=== PATIENT | female | born 2000 | race American Indian/Alaskan Native ===

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

== ENCOUNTER 2019-11-11 12:49 | Inpatient (IN) | payer MEDICAID ==
[2019-11-11] MEDS ORDERED: Misoprostol 400 MCG (4 X 100 MCG TAB) RECTAL PRN (13:34)
[2019-11-11] MEDS ORDERED: Methylergonovine 0.2 MG/1 ML Amp IM PRN (13:34)
[2019-11-11] MEDS ORDERED: Penicillin G Potassium 5 MILLUNITS in Sodium Chloride 0.9% 100 ML IV ONE (13:34)
[2019-11-11] MEDS ORDERED: Acetaminophen 325 MG Tab PO PRN (13:34)
[2019-11-11] MEDS ORDERED: Lactated Ringers 1,000 ML IV ONE (13:34)
[2019-11-11] MEDS ORDERED: Tranexamic Acid 1,000 MG in Sodium Chloride 0.9% 100 ML IV PRN (13:34)
[2019-11-11] MEDS ORDERED: Carboprost Tromethamine 250 MCG/1 ML Amp IM PRN (13:34)
[2019-11-11] MEDS ORDERED: Lidocaine 1% 30 ML SDV INJECT PRN (13:34)
[2019-11-11] MEDS ORDERED: Sodium Chloride 0.9% 10 ML Syringe FLUSH PRN (13:34)
[2019-11-11] MEDS ORDERED: Ondansetron 4 MG/2 ML SDV IVPUSH PRN (13:34)
[2019-11-11] MEDS ORDERED: Lactated Ringers 1,000 ML IV SCH (13:45)
[2019-11-11] MEDS ORDERED: Oxytocin/Normal Saline 30 UNIT/500 ML BAG IV SCH (13:45)
[2019-11-11] MEDS: fentaNYL 100 MCG/2 ML SDV IVPUSH PRN ×2 (15:45→16:43)
[2019-11-11] MEDS ORDERED: Benzocaine/Menthol 20%-0.5% Spray 56 GM Canister TOP PRN (17:13)
[2019-11-11] MEDS ORDERED: Simethicone 80 MG Tab.Chew PO PRN (17:13)
[2019-11-11] MEDS ORDERED: Measles, Mumps & Rubella Vaccine 0.5 ML SDV SUBCUT ONE (17:13)
[2019-11-11] MEDS ORDERED: Penicillin G Potassium 3 MILLUNITS in Sodium Chloride 0.9% 100 ML IV SCH (18:00)
[2019-11-11] MEDS: Ibuprofen 800 MG Tab PO PRN (18:57)
[2019-11-11] MEDS: Docusate Sodium 100 MG Cap PO PRN (20:16)
--- NOTE | 2019-11-11 20:26 | HP ---
CHIEF COMPLAINT: Force and frequency of contractions. HISTORY OF PRESENT ILLNESS: The patient is a 19-year-old 1, para 0, currently at 39-3/7 weeks of her , presenting to Labor and Delivery complaining of contractions, started around 11 o'clock last night, and they have gotten consistently stronger and closer together. No leakage of fluid or vaginal bleeding. movement has been good. No chest pain, shortness of breath. No symptoms of preeclampsia. Denies other concerns, but is aware that she is group B strep positive. Hoping to use minimal pain medications throughout labor if possible. Otherwise, has no concerns. HISTORY: The patient started her care in [place], and those labs showed an uncertain LMP of 01/12/2019. However, she did have early ultrasound at 8 weeks 5 days, giving us our working due date of 11/15/2019. There was alcohol exposure prior to knowledge of and last marijuana use was reported by her in April of 2019. Medication exposures included Rocephin, Zithromax, Metronidazole, Keflex, Vistaril, and Keflex. Stopped her trazodone and Zoloft after finding out she was . Otherwise, urine drug screen positive in March for marijuana. Wet prep positive for rare clue cells. Chlamydia was positive. Gonorrhea was negative. HIV negative. Hepatitis C negative. She is blood type O positive. Antibody screen negative. Hepatitis B negative. RPR nonreactive. Rubella non-immune. In June, she was gonorrhea and chlamydia positive for both. In June, her 22-week anatomy ultrasound shows an anterior placenta, breech baby, normal anatomy. Hemoglobin was 12.4. She had a negative quad screen and a normal 1-hour glucose tolerance test of 103. In July, she had test of cure negative for gonorrhea and chlamydia. She received her flu vaccine on 04/10/2019 and her Tdap on 08/25/2019. Urinary tract infection in the 3rd trimester and prescribed Macrobid, but she did not complete take it. For her STD testing, she was chlamydia positive, gonorrhea negative. Vomited her first dose of Zithromax and then was re-dosed, but ultimately had the test positive, treated with Rocephin and Zithromax again, and then finally test of cure was negative. The breech presentation has resolved. She also has obesity, but otherwise no major risk factors. PAST MEDICAL HISTORY: Cholelithiasis, chronic constipation, depression, and stopped her sertraline and trazodone in the 1st trimester of , history of marijuana use, and class III obesity with a BMI of 40 to 50. PAST SURGICAL HISTORY: Cholecystectomy 09/2013 and tooth extraction. FAMILY HISTORY: Both parents, 5 sisters, and 2 brothers are all alive and well. Maternal grandmother has some sort of respiratory problems related to smoking. No known history of lung cancer. Maternal grandfather is alive with no known medical problems. Paternal grandmother is and had alcohol abuse, alcohol related liver cirrhosis, and diabetes. Paternal grandfather is alive. He has diabetes and has heart disease as do others on his side of the family. There is no family history of any bleeding problems, clotting disorders, cystic fibrosis, seizures, anesthesia problems, defects, or multiple births. SOCIAL HISTORY: The patient was working at [employer], but quit working 2-3 weeks ago. She is living with her mother and siblings. Father of the baby is Norberto Frederick and he is not working at this time. This will be his second child and his first son has fairly severe eczema and he does not live with them. They do continue to be romantically involved and he is expected to be acting in the father role for this new baby. MEDICATIONS: vitamin 1 daily, Vistaril 25 mg up to 3 times a day as needed for back pain. ALLERGIES: No known drug allergies. REVIEW OF SYSTEMS: Pertinent positives and negatives as listed above under the history of present illness. The patient has been afebrile. No respiratory symptoms. No concerning symptoms for COVID-19. No symptoms of preeclampsia. No nausea, vomiting. No diarrhea, constipation. No acute skin changes. OBJECTIVE: Vital Signs: Temp 97.6, Pulse 83, BP 107/66, Resp rate 16.. HEENT: Grossly unremarkable. Neck: Supple without adenopathy. Heart: Regular without obvious murmur. Lungs: Clear to auscultation bilaterally with good chest expansion. Abdomen: Soft without masses. Fundal height appropriate. Baby palpates vertex. heart tones tracing 150 beats per minute at baseline. Accelerations are hard to waste picker on initial tracing. [place] showing contractions every 2 to 3 minutes. Cervical exam performed by the nurse, 5 cm dilated, 100% effaced, bulging bag of water is intact. Extremities: No edema, erythema, or tenderness. Skin: Without significant lesions. Neuro: no focal deficits. ASSESSMENT: 1. 1, para 0, currently at 39-3/7 weeks of her . 2. Group B streptococcus positive. 3. Rubella nonimmune. 4. History of marijuana use. 5. History of gonorrhea and chlamydia earlier in this , treated, and test of cure negative. 6. History of urinary tract infection in the 3rd trimester. 7. History of bacterial vaginosis. 8. Class III obesity. 9. Depression. 10.Chronic constipation. PLAN: The patient has been admitted to Labor and Delivery. We will get her IV started and initiate the penicillin protocol for GBS prophylaxis. The patient can have fentanyl or intrathecal for pain management as desired. After she had her first dose of penicillin, it has been about 4 hours, if she is not continuing to make adequate progress or if she desires to speed up labor, anticipate performing artificial rupture of membranes with possible augmentation. Will be anticipating vaginal delivery. Naturally, we will change the course of labor and delivery should any problems or concerns arise. The patient's questions have been answered. [facility] /[id number] YOLANDE
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
[2019-11-12] MEDS: Ibuprofen 800 MG Tab PO PRN ×3 (04:52→22:05)
[2019-11-12] MEDS: Ferrous Sulfate 325 MG Tab PO SCH (08:16)
[2019-11-12] MEDS: Docusate Sodium 100 MG Cap PO PRN ×2 (08:16→22:05)
[2019-11-12] MEDS: Prenatal Multivitamin with Calcium/Folic Acid/Iron Tab PO SCH (08:16)
--- NOTE | 2019-11-12 12:03 | PN ---
DATE: 11/12/2019 SUBJECTIVE: Postvaginal delivery day #1. Patient reports doing fairly well. She has been ambulating, tolerating regular diet, voiding without difficulties, has not yet had a bowel movement. her child and a little concerned about her milk not having come in yet, also wanting to go back on her Zoloft for her chronic depression, wants to hold off on the trazodone at this time since that was primarily being given for the insomnia component. Otherwise, no shortness of breath or chest pain. Blood flow has been moderate. No increased edema in the extremities. No symptoms of preeclampsia. No other acute concerns for her today. OBJECTIVE: Vital Signs: Temperature is 97.5, pulse 76, blood pressure 109/65, respiratory rate of 14. Heart: Regular without murmur. Lungs: Clear to auscultation bilaterally. Abdomen: Soft, nontender. Fundus is firm and below the umbilicus. Extremities: No edema, erythema, or tenderness noted. ASSESSMENT: 1. 1 now para 1, status post spontaneous vaginal delivery with third- degree repair. 2. Rubella nonimmune, did receive her MMR vaccine. 3. Class 3 obesity. 4. History of marijuana use. 5. History of gonorrhea and chlamydia treated with [id number] negative. 6. Depression. 7. History of chronic constipation. PLAN: Continue routine post vaginal delivery care. I have encouraged her to use the water bottle when she voids to help with keeping the perineal area more clean. Also, encouraged her to talk to the nurses about regular use of a stool softener is so as to make her first few bowel movements a little bit easier to pass. We will get her Zoloft, restarted at 50 mg daily, and she can follow up with Marion Roque regarding her dosing moving forward. Otherwise, continue with active breast feeding support. [facility] /[id number]
[2019-11-12] MEDS: Sertraline 50 MG Tab PO SCH (13:25)
[2019-11-12] MEDS: Acetaminophen 325 MG Tab PO PRN ×2 (17:24→22:06)
[2019-11-13] MEDS: Acetaminophen 325 MG Tab PO PRN ×3 (03:14→16:39)
[2019-11-13] MEDS: Prenatal Multivitamin with Calcium/Folic Acid/Iron Tab PO SCH (09:11)
[2019-11-13] MEDS: Ibuprofen 800 MG Tab PO PRN (09:11)
[2019-11-13] MEDS: Sertraline 50 MG Tab PO SCH (09:11)
[2019-11-13] MEDS: Ferrous Sulfate 325 MG Tab PO SCH (09:12)
[2019-11-13] MEDS: Docusate Sodium 100 MG Cap PO PRN (09:15)
[2019-11-13 10:22] VITALS: BP 118/70; PULSE 80
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
[2019-11-14 11:46] LABS: C.TRACHOMATIS BY TMA Negative (Negative); N.GONORRHOEAE BY TMA Negative (Negative)
== END 2019-11-13 18:05 | disposition home or self-care (01) | DRG 768 ==
LOC: DL.OBCHECK 12:49 → DL.OB 13:34 → OBSVTOIN 16:32
PROVIDERS: ADMIT Family Medicine; ATTEND Family Medicine
PROC: 10E0XZZ Delivery of Products of Conception, External Approach (ICD-10-PCS; principal; 2019-11-11)
PROC: 0DQR0ZZ Repair Anal Sphincter, Open Approach (ICD-10-PCS; 2019-11-11)
DX: O99.824 Streptococcus B carrier state complicating childbirth (principal); Z37.0 Single live birth; Z3A.39 39 weeks gestation of pregnancy; O75.3 Other infection during labor; O99.214 Obesity complicating childbirth; E66.9 Obesity, unspecified; O70.20 Third degree perineal laceration during delivery, unspecified; O99.324 Drug use complicating childbirth; F12.90 Cannabis use, unspecified, uncomplicated
CPT/HCPCS: 36415; 59409; 80305-QW; 85027; 87491; 87591; 90471; 90707; A9270-GY; J2001; J2540; J2590; J3010; J7050; J7120

== ENCOUNTER 2020-12-22 18:39 | Emergency (ER) | payer OTHER, MEDICAID ==
[2020-12-22 20:06] VITALS: BP 90/55; PULSE 82
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
[2020-12-22 21:12] LABS: ANION GAP 15.8 mEq/L (7-13); CHLORIDE,CL 103 mmol/L (98-107); SODIUM,NA 139 mmol/L (136-145)
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
== END 2020-12-22 22:07 | disposition home or self-care (01) ==
LOC: DL.ED 18:39
DX: M54.2 Cervicalgia (principal); M54.6 Pain in thoracic spine; V49.40XA Driver injured in collision with unspecified motor vehicles in traffic accident, initial encounter; Y92.410 Unspecified street and highway as the place of occurrence of the external cause
CPT/HCPCS: 36415; 72125; 72128; 80053; 81025; 85025; 99283; 99284-25

== ENCOUNTER 2021-03-05 06:07 | Emergency (ER) | payer OTHER, MEDICAID ==
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
[2021-03-05 07:38] LABS: ANION GAP 20.7 mEq/L (7-13); CHLORIDE,CL 107 mmol/L (98-107); SODIUM,NA 147 mmol/L (136-145)
[2021-03-05 07:41] LABS: ACETAMINOPHEN 0 ug/mL (10-30 (Therapeutic))
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
[2021-03-05] MEDS ORDERED: Ketorolac 30 MG/ML SDV IVPUSH ONE (08:20)
[2021-03-05] MEDS ORDERED: Sodium Chloride 0.9% 1,000 ML IV ONE (08:20)
[2021-03-05 08:54] LABS: BENZODIAZEPINE,URINE NEGATIVE (NEGATIVE); MDMA (ECSTASY), URINE NEGATIVE (NEGATIVE); METHADONE,URINE NEGATIVE (NEGATIVE); METHAMPHETAMINES,URINE NEGATIVE (NEGATIVE); OPIATES,URINE NEGATIVE (NEGATIVE); TCA,URINE NEGATIVE (NEGATIVE)
[2021-03-05 08:55] LABS: AMPHETAMINES,URINE NEGATIVE (NEGATIVE); BARBITURATES,URINE NEGATIVE (NEGATIVE); OXYCODONE,URINE NEGATIVE (NEGATIVE); PHENCYCLIDINE,URINE NEGATIVE (NEGATIVE)
== END 2021-03-05 09:37 | disposition home or self-care (01) ==
LOC: DL.ED 06:07
DX: S60.551A Superficial foreign body of right hand, initial encounter (principal); S16.1XXA Strain of muscle, fascia and tendon at neck level, initial encounter; F10.129 Alcohol abuse with intoxication, unspecified; Y90.8 Blood alcohol level of 240 mg/100 ml or more; V49.10XA Passenger injured in collision with unspecified motor vehicles in nontraffic accident, initial encounter; Y92.410 Unspecified street and highway as the place of occurrence of the external cause
CPT/HCPCS: 36415; 70450; 72125; 72128; 72131; 80053; 80143; 80179; 80305-QW; 80307; 81001; 81025; 82947; 85025; 87086; 96374; 99284; 99284-25; J1885; J7030

== ENCOUNTER 2022-11-27 04:23 | Emergency (ER) | payer BC, OTHER ==
[2022-11-27 05:11] VITALS: BP 118/79; PULSE 114
== END 2022-11-27 05:07 | disposition home or self-care (01) ==
LOC: DL.ED 04:23
DX: S41.152A Open bite of left upper arm, initial encounter (principal); S41.151A Open bite of right upper arm, initial encounter; S50.12XA Contusion of left forearm, initial encounter; S50.11XA Contusion of right forearm, initial encounter; W50.3XXA Accidental bite by another person, initial encounter
CPT/HCPCS: 99283